=== PATIENT | female | born 1985 | race Caucasian/White ===

== ENCOUNTER 2017-02-06 06:07 | Day surgery (SDC) | payer OTHER ==
[~2017-02-06 06:07] MED LIST: Buffered Lidocaine 0.9% SYRIN* 5 ML/SYR SYRINGE INTRADERM ONE
[2017-02-06] MEDS ORDERED: Buffered Lidocaine 0.9% SYRIN* 5 ML/SYR SYRINGE ONE (06:09)
[2017-02-06] MEDS ORDERED: ceFAZolin 2 GM PREMIX (*) 2 GM/50 ML BAG IVPB ONE (06:26)
[2017-02-06] MEDS ORDERED: Lidocaine 1% INJ* 10 MG/ML 30 ML SDV ONE (07:46)
[2017-02-06] MEDS ORDERED: Midazolam* 1 MG/ML 5 ML VIAL (5 MG) ONE (07:49)
[2017-02-06] MEDS ORDERED: fentaNYL* 50 MCG/ML 2 ML VIAL (100 MCG VIAL) ONE (07:49)
[2017-02-06] MEDS ORDERED: Propofol* 10 MG/ML 20 ML BTL IV PUSH ONE ×2 (08:56→09:20)
[2017-02-06] MEDS ORDERED: Ketorolac INJ* 30 MG/ML 1 ML VIAL ONE (09:20)
[2017-02-06] MEDS ORDERED: Acetaminophen TAB* 325 MG PO PRN (09:22)
[2017-02-06] MEDS ORDERED: oxyCODONE/Acetamin 5/325 MG* TAB PO PRN (09:27)
[2017-02-06] MEDS ORDERED: HYDROmorphone INJ* 1 MG/ML CARPUJECT SYRINGE ONE (09:33)
[2017-02-06] MEDS: HYDROmorphone INJ* 1 MG/ML CARPUJECT SYRINGE IV PRN ×2 (09:36→09:43)
[2017-02-06] MEDS ORDERED: oxyCODONE/Acetamin 5/325 MG* TAB ONE (09:58)
[2017-02-06 11:12] VITALS: BP 106/69
--- NOTE | 2017-02-11 02:22 | OP ---
DATE OF OPERATION: 02/06/17 - SDS DATE OF : 83 SURGEON: Rangel Borges MD ANESTHESIOLOGIST: Dr. Jimenez. ANESTHESIA: Sedation with local. PRE-OP DIAGNOSIS: Recurrent right Bartholin's cyst. POST-OP DIAGNOSIS: Recurrent right Bartholin's cyst. OPERATIVE PROCEDURE: Marsupialization of the right Bartholin's cyst. FINDINGS: Enlarged right Bartholin's cyst, otherwise normal appearing perineum , normal appearing and normal exam of the left Bartholin's cyst. CONDITION: The patient was brought to recovery room, awake and in stable condition. PATHOLOGY SPECIMENS: None. ESTIMATED BLOOD LOSS: 100 mL. COUNTS: Sponge, lap, and needle counts were correct x2. DESCRIPTION OF PROCEDURE: The patient was brought to the operating room when sedation was found to be adequate. The patient was prepped and draped in the usual sterile fashion in dorsal lithotomy position. Time-out was performed. The area of the Bartholin's was injected with lidocaine 1% without epinephrine and approximately 1.5 cm incision was made on the inner aspect of the right labia until the Bartholin's cyst was reached, clear fluid was expressed. The inner aspect of the Bartholin's cyst was sewn with 3-0 Vicryl to the outer aspect of the right labia. At this point, a hematoma was noted to be forming at the upper area of the incision on the right. The right labia became markedly enlarged and tense. The incision was extended slightly. A blood vessel at the top was identified and tied off and the right labia became less tense and was able to be compressed. When hemostasis was achieved, the sutures marsupializing the Bartholin's cyst were examined and found to be intact and the patient was brought to the recovery room, awake and in stable condition. [id number] #: [id number] [facility]
== END 2017-02-06 11:13 | disposition home or self-care (01) ==
LOC: OR 06:07
PROVIDERS: ATTEND Obstetrics & Gynecology
DX: N75.0 Cyst of Bartholin's gland (principal)
CPT/HCPCS: 81025; A9270-GY; J0690; J1170; J1885; J2001; J2250; J2704; J3010